=== PATIENT | male | born 1985 | race Caucasian/White ===

== ENCOUNTER 2016-08-22 14:31 | Emergency (ER) | payer OTHER, MEDICAID ==
--- NOTE | 2016-08-22 15:53 | C.PDOC ---
History Of Present Illness Patient is a 30 y/o male that presents to the ED for evaluation of painful pimple to the right inner nare for the past 1 week tjhat he has been picking at with fingernails, and there has been some purulent discharge. Pt states pain and swelling to end of nose have worsened in last 2 days, which prompted him to visit the ED today. Pt also complains of frontal headache. Otherwise, denies any fever, chills, facial swelling or erythema, difficulty breathing, or any other associated symptoms at this time. Time Seen by Provider: 08/22/16 14:54 Chief Complaint (Nursing): Abnormal Skin Integrity History Per: Patient History/Exam Limitations: no limitations Onset/Duration Of Symptoms: Days (1 week) Current Symptoms Are (Timing): Still Present Quality Of Symptoms: Painful, Swollen, Draining Recent travel outside of the [place]: No Additional History Per: Patient Past Medical History Reviewed: Historical Data, Nursing Documentation, Vital Signs Vital Signs: Last Vital Signs Temp 97.7 F 08/22/16 16:01 Pulse 60 08/22/16 16:01 Resp 18 08/22/16 16:01 BP 110/72 08/22/16 16:01 Pulse Ox 99 08/22/16 17:43 - Medical History PMH: No Chronic Diseases Family History: States: Unknown Family Hx - Social History Hx Tobacco Use: No Hx Alcohol Use: Yes Hx Substance Use: No - Immunization History Hx Tetanus Toxoid Vaccination: Yes Hx Influenza Vaccination: No Hx Pneumococcal Vaccination: No Review Of Systems Constitutional: Negative for: Fever, Chills ENT: Positive for: Nose Pain (right inner nare pain and swelling), Nose Discharge Respiratory: Negative for: Shortness of Breath Skin: Negative for: Rash Neurological: Positive for: Headache. Negative for: Dizziness Physical Exam - Physical Exam Appears: Non-toxic, No Acute Distress Skin: Warm, Dry Head: Atraumatic, Normacephalic, No Swelling (no facial swelling) Eye(s): bilateral: Normal Inspection Nose: Discharge (purulent discharge from inner medial aspect of right nare), Tenderness (tenderness, swelling, redness, and warmth to distal 1/3 aspect of right side of nose ), No Septal Hematoma, Other (no fluctuance to external region of nose) Oral Mucosa: Moist Tongue: Normal Appearing Lips: Normal Appearing Neurological/Psych: Oriented x3, Normal Speech, Normal Cognition ED Course And Treatment O2 Sat by Pulse Oximetry: 99 (on RA) Pulse Ox Interpretation: Normal Progress Note: Patient was given Motrin, and Clinamycin in the ER. On re-exam, pt reports feeling better, and is comfortable being discharged home. Patient was instructed to apply warm compresses to the affected area several times a day , and to follow up with ENT specialist or ED in 24 hours. Medical Decision Making Medical Decision Making: pt given first dose antibiotics here in ED, will d/c with rx for antibiotics, wound check in 24 hours in ED or ENT. pt advised ot return to ED sooner for any worsening symptoms. Disposition Counseled Patient/Family Regarding: Diagnosis, Need For Followup, Rx Given - Disposition Referrals: Yemi Ochoa MD [Staff Provider] - Disposition: HOME/ ROUTINE Disposition Time: 15:51 Condition: STABLE Additional Instructions: Apply warm compresses to affected area of nose several times a day. Take antibiotics as prescribed. Take Tylenol or Motrin for pain if needed. 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 - Scribe Statement The provider has reviewed the documentation as recorded by the Prabhuibzack Petersen All medical record entries made by the Douglas were at my direction and personally dictated by me. I have reviewed the chart and agree that the record accurately reflects my personal performance of the history, physical exam, medical decision making, and the department course for this patient. I have also personally directed, reviewed, and agree with the discharge instructions and disposition.
[2016-08-22 16:02] VITALS: BP 110/72; PULSE 60; RESP 18; TEMP 97.7
[2016-08-22 16:57] VITALS: O2SAT 99
== END 2016-08-22 16:04 | disposition home or self-care (01) ==
LOC: C.ER 14:31
DX: J34.0 Abscess, furuncle and carbuncle of nose (principal)